=== PATIENT | female | born 1990 | race Caucasian/White ===

== ENCOUNTER 2019-07-29 09:38 | Outpatient (CLI) | payer BC ==
[2019-07-29] VITALS (20 sets, daily range): BP systolic 106–151; BP diastolic 64–85
[~2019-07-29 09:38] MED LIST: ZOF4T PO
== END 2019-07-29 23:59 | disposition home or self-care (01) ==
LOC: CARD DIAG 09:38
PROVIDERS: ATTEND Internal Medicine Interventional Cardiology
DX: R55 Syncope and collapse (principal)
CPT/HCPCS: 93660